=== PATIENT | male | born 1970 | race Caucasian/White ===

== ENCOUNTER 2021-09-08 14:25 | Emergency (ER) | payer OTHER ==
[~2021-09-08 14:25] MED LIST: BENICAR20 MG PO; HYDROCHLOROTHIA25 MG PO; KEPPRA500 MG PO; KEPPRA750 MG PO
[2021-09-08 14:44] LABS: HEMOGLOBIN 15.4 gm/dl (14.0-17.5); RED BLOOD COUNT 5.31 M/UL (4.20-5.50); WHITE BLOOD COUNT 8.5 K/UL (4.5-11.0)
[2021-09-08 15:55] LABS: BUN/CREATININE RATIO 17 (0-10)
[2021-09-08] MEDS ORDERED: CLONIDINE HCL0.2 MG PO (18:15)
[2021-09-08] MEDS ORDERED: LISINOPRIL10 MG PO (18:15)
== END 2021-09-08 18:25 | disposition home or self-care (01) ==
LOC: ER1 14:25
DX: R07.89 Other chest pain (principal); I10 Essential (primary) hypertension; Z88.0 Allergy status to penicillin; Z88.8 Allergy status to other drugs, medicaments and biological substances
CPT/HCPCS: 71045; 80053; 82550; 82553; 83605; 84484; 85025; 93005; 96374; 96375; 99285; J1100; J1200; J1885; J2765